=== PATIENT | male | born 1930 | race Caucasian/White ===

== ENCOUNTER → 2017-07-23 | Outpatient (CLI) | payer OTHER ==
[~2017-07-23] MED LIST: ASPI81EC; FISH1000; LEVSOD50 PO; MECL25 PO; NIAC250ER; POTCHL20ER PO; TORS10
[2017-07-23 11:59] LABS: Source, Urine Clean Catch
[2017-07-23 13:07] LABS: Bilirubin, Urine Neg (Neg); Blood, Urine Neg (Neg); Glucose Qualitative, Urine Neg (Neg); Ketones, Urine Neg (Neg); Leukocyte Esterase, Urine Neg (Neg); Nitrite, Urine Neg (Neg); Protein, Urine Neg (Neg); Specific Gravity, Urine 1.005 (1.003-1.022); Urobilinogen, Urine NORM (Normal)
[2017-07-23 13:23] LABS: Appearance, Urine Clear (Clear); Color, Urine Yellow (P-Yellow)
== END | disposition home or self-care (01) ==
LOC: LAB SHORT 07:20 → LAB 07:20 → LAB FUT 07-22 16:00
PROVIDERS: Internal Medicine
DX: R30.9 Painful micturition, unspecified (principal)
CPT/HCPCS: 81003

== ENCOUNTER 2018-11-29 13:31 | Emergency (ER) | payer OTHER ==
[~2018-11-29] VITALS: Ht 177.8 cm; Wt 83.9 kg
[~2018-11-29 13:31] MED LIST changes: -ASPI81EC; +FISH OIL 1,001000 MG PO; -FISH1000; +LO-DOSE ASPIRIN81 MG PO; +POTA10T PO; -POTCHL20ER PO; -TORS10; +TORS10 PO
[2018-11-29] MEDS ORDERED: QUIN10 PO (14:10)
[2018-11-29] MEDS ORDERED: HYDR1TAB94 PO (22:06)
== END 2018-11-29 23:16 | disposition home or self-care (01) ==
LOC: ER 13:31
DX: S83.242A Other tear of medial meniscus, current injury, left knee, initial encounter (principal); S76.112A Strain of left quadriceps muscle, fascia and tendon, initial encounter; W01.198A Fall on same level from slipping, tripping and stumbling with subsequent striking against other object, initial encounter; Z79.82 Long term (current) use of aspirin; Z79.899 Other long term (current) drug therapy; I10 Essential (primary) hypertension
CPT/HCPCS: 29505; 73564; 73721; 99284-25

== ENCOUNTER 2018-12-08 10:04 | Day surgery (SDC) | payer OTHER ==
[~2018-12-08] VITALS: Ht 177.8 cm; Wt 76.1 kg
[~2018-12-08 10:04] MED LIST changes: +HYDR1TAB94 PO; +QUIN10 PO
--- NOTE | 2018-12-08 10:30 | NUR ---
12/08/18 1030 Aminta Medrano CALL LIGPERRY WITHIN REACH. FAMILY AT BEDSIDE
== END 2018-12-08 14:30 | disposition home or self-care (01) ==
LOC: ORSCSDS 10:04
PROVIDERS: Orthopaedic Surgery
PROC: 0LQM0ZZ Repair Left Upper Leg Tendon, Open Approach (ICD-10-PCS; principal; 2018-12-08 11:00)
DX: M66.88 Spontaneous rupture of other tendons, other sites (principal); I10 Essential (primary) hypertension; E03.9 Hypothyroidism, unspecified; Z79.899 Other long term (current) drug therapy
CPT/HCPCS: C1713; J0690; J1100; J1885; J2370; J2405; J2704; J3010; J7120

== ENCOUNTER 2018-12-08 18:14 | Emergency (ER) | payer OTHER ==
[~2018-12-08] VITALS: Ht 177.8 cm; Wt 78.9 kg
== END 2018-12-08 20:52 | disposition home or self-care (01) ==
LOC: ER 18:14
DX: R33.9 Retention of urine, unspecified (principal); Z79.82 Long term (current) use of aspirin; Z79.899 Other long term (current) drug therapy
CPT/HCPCS: 51702; 99282

== ENCOUNTER → 2019-05-18 | Outpatient (CLI) | payer OTHER ==
[2019-05-18 11:22] LABS: Source, Urine Clean Catch
[2019-05-18 12:55] LABS: Bilirubin, Urine Neg (Neg); Blood, Urine Neg (Neg); Glucose Qualitative, Urine Neg (Neg); Ketones, Urine Neg (Neg); Leukocyte Esterase, Urine 1+ (Neg); Nitrite, Urine Neg (Neg); Protein, Urine Neg (Neg); Urobilinogen, Urine NORM (Normal)
[2019-05-18 13:11] LABS: Appearance, Urine Clear (Clear); Color, Urine Yellow (P-Yellow)
[2019-05-18 13:12] LABS: Bacteria Rare /hpf; Mucus Mod (0-Heavy); Red Blood Cells, Urine 0-2 /hpf (0-2); Squamous Epithelial Cells Not Seen /hpf (Few); White Blood Cells, Urine 0-2 /hpf (0-5)
== END | disposition home or self-care (01) ==
LOC: LAB SHORT 08:25 → LAB 08:25 → EDSTATUS 15:31
PROVIDERS: Internal Medicine
DX: R30.0 Dysuria (principal)
CPT/HCPCS: 81001; 87077; 87086; 87186